=== PATIENT | female | born 1985 | race Caucasian/White ===

== ENCOUNTER → 2019-09-17 09:33 | Outpatient (BNVA) | payer MEDICAID, SELFPAY | PROVIDERS: Family Provider Family Medicine; PCP Family Medicine; Visit Provider Family Medicine | DX: R74.8 Abnormal levels of other serum enzymes (principal); J40 Bronchitis, not specified as acute or chronic | CPT/HCPCS: 80053; 85025 ==

== ENCOUNTER → 2019-11-26 16:08 | Outpatient (BNVA) | payer MEDICAID, SELFPAY | PROVIDERS: Family Provider Family Medicine; PCP Family Medicine; Visit Provider Counselor Professional | DX: F33.2 Major depressive disorder, recurrent severe without psychotic features (principal); F41.1 Generalized anxiety disorder | CPT/HCPCS: 90791 ==

== ENCOUNTER → 2019-12-17 08:30 | Outpatient (BNVA) | payer MEDICAID, SELFPAY | PROVIDERS: Family Provider Family Medicine; PCP Family Medicine; Visit Provider Psychiatry & Neurology Psychiatry | DX: F41.1 Generalized anxiety disorder (principal); F32.9 Major depressive disorder, single episode, unspecified; R53.83 Other fatigue; E63.9 Nutritional deficiency, unspecified; F09 Unspecified mental disorder due to known physiological condition; F48.9 Nonpsychotic mental disorder, unspecified; F33.1 Major depressive disorder, recurrent, moderate; F39 Unspecified mood [affective] disorder | CPT/HCPCS: 99205; G0463 ==

== ENCOUNTER → 2019-12-24 08:07 | Outpatient (BNVA) | payer MEDICAID, SELFPAY | PROVIDERS: Family Provider Family Medicine; PCP Family Medicine; Visit Provider Psychiatry & Neurology Psychiatry | DX: F33.1 Major depressive disorder, recurrent, moderate (principal) | CPT/HCPCS: 99211; G0463 ==

== ENCOUNTER → 2019-12-29 11:04 | Outpatient (BNVA) | payer MEDICAID, SELFPAY | PROVIDERS: Family Provider Family Medicine; PCP Family Medicine; Visit Provider Counselor Professional | DX: F41.1 Generalized anxiety disorder (principal); F33.2 Major depressive disorder, recurrent severe without psychotic features | CPT/HCPCS: 90832 ==

== ENCOUNTER → 2020-01-05 11:06 | Outpatient (BNVA) | payer MEDICAID, SELFPAY | PROVIDERS: Family Provider Family Medicine; PCP Family Medicine; Visit Provider Counselor Professional | DX: F41.1 Generalized anxiety disorder (principal); F33.2 Major depressive disorder, recurrent severe without psychotic features | CPT/HCPCS: 90832 ==

== ENCOUNTER → 2020-01-15 07:52 | Outpatient (BNVA) | payer MEDICAID, SELFPAY | PROVIDERS: Family Provider Family Medicine; PCP Family Medicine; Visit Provider Nurse Practitioner Psychiatric/Mental Health | DX: F33.9 Major depressive disorder, recurrent, unspecified (principal) | CPT/HCPCS: 99213 ==

== ENCOUNTER → 2020-01-19 11:16 | Outpatient (BNVA) | payer MEDICAID, SELFPAY | PROVIDERS: Family Provider Family Medicine; PCP Family Medicine; Visit Provider Counselor Professional | DX: F41.1 Generalized anxiety disorder (principal); F33.9 Major depressive disorder, recurrent, unspecified | CPT/HCPCS: 90834 ==

== ENCOUNTER → 2020-02-12 07:50 | Outpatient (BNVA) | payer MEDICAID, SELFPAY | PROVIDERS: Family Provider Family Medicine; PCP Family Medicine; Visit Provider Nurse Practitioner Psychiatric/Mental Health | DX: F33.9 Major depressive disorder, recurrent, unspecified (principal); F41.1 Generalized anxiety disorder; Z03.89 Encounter for observation for other suspected diseases and conditions ruled out | CPT/HCPCS: 99212 ==

== ENCOUNTER → 2020-02-16 11:06 | Outpatient (BNVA) | payer MEDICAID, SELFPAY | PROVIDERS: Family Provider Family Medicine; PCP Family Medicine; Visit Provider Counselor Professional | DX: F33.9 Major depressive disorder, recurrent, unspecified (principal); F41.1 Generalized anxiety disorder | CPT/HCPCS: 90834 ==

== ENCOUNTER → 2020-03-01 11:06 | Outpatient (BNVA) | payer MEDICAID, SELFPAY | PROVIDERS: Family Provider Family Medicine; PCP Family Medicine; Visit Provider Counselor Professional | DX: F41.1 Generalized anxiety disorder (principal); F33.9 Major depressive disorder, recurrent, unspecified | CPT/HCPCS: 90832 ==

== ENCOUNTER → 2020-03-15 11:05 | Outpatient (BNVA) | payer MEDICAID, SELFPAY | PROVIDERS: Family Provider Family Medicine; PCP Family Medicine; Visit Provider Counselor Professional | DX: F33.9 Major depressive disorder, recurrent, unspecified (principal); F41.1 Generalized anxiety disorder | CPT/HCPCS: 90832 ==

== ENCOUNTER → 2020-03-17 10:17 | Outpatient (BNVA) | payer MEDICAID, SELFPAY | PROVIDERS: Family Provider Family Medicine; PCP Family Medicine; Visit Provider Family Medicine | DX: N76.0 Acute vaginitis (principal); B96.89 Other specified bacterial agents as the cause of diseases classified elsewhere | CPT/HCPCS: 81000; 87491; 87591; 87661 ==

== ENCOUNTER → 2020-04-05 08:03 | Outpatient (BNVA) | payer MEDICAID, SELFPAY ==
[2020-03-18 09:18] VITALS: BP 105/69; BMI 28.3
== END ==
PROVIDERS: Family Provider Family Medicine; PCP Family Medicine; Visit Provider Nurse Practitioner Psychiatric/Mental Health
DX: F33.9 Major depressive disorder, recurrent, unspecified (principal); F41.1 Generalized anxiety disorder
CPT/HCPCS: 90832; 99212

== ENCOUNTER → 2020-04-19 10:30 | Outpatient (BNVA) | payer MEDICAID, SELFPAY ==
[2020-03-18 09:18] VITALS: BP 105/69; BMI 28.3
== END ==
PROVIDERS: Family Provider Family Medicine; PCP Family Medicine; Visit Provider Family Medicine
DX: R00.0 Tachycardia, unspecified (principal); Z13.6 Encounter for screening for cardiovascular disorders
CPT/HCPCS: 80053; 80061; 83735; 84443; 85025

== ENCOUNTER → 2020-04-22 14:07 | Outpatient (BNVA) | payer MEDICAID, SELFPAY ==
[2020-03-18 09:18] VITALS: BP 105/69; BMI 28.3
== END ==
PROVIDERS: Family Provider Family Medicine; PCP Family Medicine; Visit Provider Counselor Professional
DX: F33.9 Major depressive disorder, recurrent, unspecified (principal); F41.1 Generalized anxiety disorder
CPT/HCPCS: 90832

== ENCOUNTER → 2020-05-06 14:07 | Outpatient (BNVA) | payer MEDICAID, SELFPAY ==
[2020-03-18 09:18] VITALS: BP 105/69; BMI 28.3
== END ==
PROVIDERS: Family Provider Family Medicine; PCP Family Medicine; Visit Provider Counselor Professional
DX: F33.9 Major depressive disorder, recurrent, unspecified (principal); F41.1 Generalized anxiety disorder
CPT/HCPCS: 90832

== ENCOUNTER → 2020-05-17 07:39 | Outpatient (BNVA) | payer MEDICAID, SELFPAY ==
[2020-03-18 09:18] VITALS: BP 105/69; BMI 28.3
== END ==
PROVIDERS: Family Provider Family Medicine; PCP Family Medicine; Visit Provider Nurse Practitioner Psychiatric/Mental Health
DX: F33.9 Major depressive disorder, recurrent, unspecified (principal); F41.1 Generalized anxiety disorder
CPT/HCPCS: 99212

== ENCOUNTER → 2020-06-08 07:22 | Outpatient (BNVA) | payer MEDICAID, SELFPAY ==
[2020-03-18 09:18] VITALS: BP 105/69; BMI 28.3
== END ==
PROVIDERS: Family Provider Family Medicine; PCP Family Medicine; Visit Provider Nurse Practitioner Psychiatric/Mental Health
DX: F41.1 Generalized anxiety disorder (principal); F33.9 Major depressive disorder, recurrent, unspecified
CPT/HCPCS: 99212

== ENCOUNTER 2020-06-15 11:49 | Outpatient (CLI) | payer MEDICAID, SELFPAY ==
[2020-03-18 09:18] VITALS: BP 105/69; BMI 28.3
== END 2020-06-15 11:50 | disposition home or self-care (01) ==
LOC: LAB 03-27 13:11
PROVIDERS: PCP Family Medicine; Visit Provider Family Medicine
DX: R53.83 Other fatigue (principal); N23 Unspecified renal colic
CPT/HCPCS: 80048; 81000; 82607; 82652

== ENCOUNTER → 2020-06-17 13:10 | Outpatient (BNVA) | payer MEDICAID, SELFPAY ==
[2020-03-18 09:18] VITALS: BP 105/69; BMI 28.3
== END ==
PROVIDERS: Family Provider Family Medicine; PCP Family Medicine; Visit Provider Counselor Professional
DX: F33.9 Major depressive disorder, recurrent, unspecified (principal); F41.1 Generalized anxiety disorder
CPT/HCPCS: 90832

== ENCOUNTER → 2020-07-05 07:26 | Outpatient (BNVA) | payer MEDICAID, SELFPAY ==
[2020-03-18 09:18] VITALS: BP 105/69; BMI 28.3
== END ==
PROVIDERS: Family Provider Family Medicine; PCP Family Medicine; Visit Provider Nurse Practitioner Psychiatric/Mental Health
DX: F41.1 Generalized anxiety disorder (principal); F33.9 Major depressive disorder, recurrent, unspecified
CPT/HCPCS: 99212

== ENCOUNTER → 2020-07-22 13:08 | Outpatient (BNVA) | payer MEDICAID, SELFPAY ==
[2020-03-18 09:18] VITALS: BP 105/69; BMI 28.3
== END ==
PROVIDERS: Family Provider Family Medicine; PCP Family Medicine; Visit Provider Counselor Professional
DX: F41.1 Generalized anxiety disorder (principal); F33.1 Major depressive disorder, recurrent, moderate
CPT/HCPCS: 90834

== ENCOUNTER → 2020-08-02 08:01 | Outpatient (BNVA) | payer MEDICAID, SELFPAY ==
[2020-03-18 09:18] VITALS: BP 105/69; BMI 28.3
== END ==
PROVIDERS: Family Provider Family Medicine; PCP Family Medicine; Visit Provider Nurse Practitioner Psychiatric/Mental Health
DX: F41.1 Generalized anxiety disorder (principal); F33.9 Major depressive disorder, recurrent, unspecified
CPT/HCPCS: 81000; 99212

== ENCOUNTER → 2020-08-05 13:00 | Outpatient (BNVA) | payer MEDICAID, SELFPAY ==
[2020-03-18 09:18] VITALS: BP 105/69; BMI 28.3
== END ==
PROVIDERS: Family Provider Family Medicine; PCP Family Medicine; Visit Provider Counselor Professional
DX: F41.1 Generalized anxiety disorder (principal); F33.9 Major depressive disorder, recurrent, unspecified
CPT/HCPCS: 90832

== ENCOUNTER 2020-09-06 10:16 | Outpatient (CLI) | payer MEDICAID, SELFPAY ==
[2020-03-18 09:18] VITALS: BP 105/69; BMI 28.3
--- NOTE | 2020-09-06 11:00 | USCV_ITS ---
Madeline Ashley Age: 35 Gender: F : 1985 Exam Date: 09/06/2020 10:48 Ordering Phys: Dominga Cannon MD ([email or web address]) Technologist: Marilyn Fernandez Exam Location: [facility] [place] Indication: TACHY BP: 111 / 76 HR: 71 Rhythm: Sinus Technical Quality: Adequate MEASUREMENTS (Male / Female) Normal Values 2D ECHO LV Diastolic Diameter PLAX 3.3 cm 4.2 - 5.9 / 3.9 - 5.3 cm LV Systolic Diameter PLAX 2.1 cm LV Chamber Size 3.9 cm IVS Diastolic Thickness 0.9 cm 0.6 - 1.0 / 0.6 - 0.9 cm IVS Systolic Thickness 1.1 cm LVPW Diastolic Thickness 1.3 cm 0.6 - 1.0 / 0.6 - 0.9 cm LVPW Systolic Thickness 1.4 cm RV Chamber Size 2.5 cm LVOT Diameter 2.0 cm LV Ejection Fraction 2D Teich 65.4 % LV Ejection Fraction MOD 2C 71.0 % LV Ejection Fraction 2C AL 70.5 % LA Diameter 2.5 cm LA Width 2.4 cm LA Height 3.9 cm RA Width 2.2 cm RA Height 3.0 cm Aorta at Sinotubular Diameter 2.7 cm M-MODE LV Diastolic Diameter MM 3.6 cm 4.2 - 5.9 / 3.9 - 5.3 cm LV Systolic Diameter MM 2.2 cm LV Ejection Fraction MM Teich 72.2 % IVS Diastolic Thickness MM 0.8 cm 0.6 - 1.0 / 0.6 - 0.9 cm IVS Systolic Thickness MM 1.1 cm LVPW Diastolic Thickness MM 0.7 cm 0.6 - 1.0 / 0.6 - 0.9 cm LVPW Systolic Thickness MM 1.6 cm RV Diastolic Diameter MM 1.6 cm Aortic Annulus Diameter 3.1 cm LA Ao Ratio MM 0.8 MV E Point Septal Separation 0.5 cm DOPPLER AV Peak Velocity 124.0 cm/s LVOT Peak Velocity 123.0 cm/s AV Area Cont Eq vti 2.8 cm squared AV Area Cont Eq pk 3.1 cm squared MV Area PHT 3.0 cm squared Mitral E to A Ratio 1.4 MV E' Velocity 59.5 cm/s Mitral E to MV E' Ratio 9.6 Mitral E to LV E' Lateral Ratio 10.2 Mitral E to LV E' Septal Ratio 9.1 TR Peak Velocity 84.0 cm/s TR Peak Gradient 2.8 mmHg TR Mean Velocity 93.2 cm/s TR Mean Gradient 3.7 mmHg TR Velocity Time Integral 28.3 cm PV Peak Velocity 76.3 cm/s RV Acceleration Time 0.2 s RV Ejection Time 0.4 s RV AcT/ET 0.5 FINDINGS Left Ventricle Normal left ventricular size and systolic function with no regional wall motion abnormalities. Left ventricular ejection fraction is estimated at 60 %. Normal diastolic function. Right Ventricle Normal right ventricular size and systolic function. Right Atrium Normal right atrial size. Left Atrium Normal left atrial size. Mitral Valve Mildly thickened mitral valve. No mitral valve stenosis. Trace mitral valve regurgitation. Aortic Valve Probably trileaflet aortic valve. No aortic valve stenosis. No aortic valve regurgitation. No aortic valve regurgitation. Tricuspid Valve Structurally normal tricuspid valve. Trace to mild tricuspid valve regurgitation. Pulmonic Valve Structurally normal pulmonic valve. Trace pulmonary valve regurgitation. Pericardium No pericardial effusion. Aorta Normal size aortic root and proximal ascending aorta. CONCLUSIONS 1. Normal left ventricular size and systolic function with no regional wall motion abnormalities. Left ventricular ejection fraction is estimated at 60 %. Normal diastolic function. 2. Normal right ventricular size and systolic function. 3. No significant valvular abnormalities. 4. No prior similar studies to compare. Dominga Cannon MD (Electronically Signed) Final Date: 07 September 2020 21:40 S
== END 2020-09-06 10:17 | disposition home or self-care (01) ==
LOC: US 10:16
PROVIDERS: PCP Family Medicine; Visit Provider Internal Medicine Cardiovascular Disease
DX: R00.0 Tachycardia, unspecified (principal)
CPT/HCPCS: 93306

== ENCOUNTER → 2020-10-25 07:43 | Outpatient (BNVA) | payer MEDICAID, SELFPAY ==
[2020-03-18 09:18] VITALS: BP 105/69; BMI 28.3
== END ==
PROVIDERS: PCP Family Medicine; Visit Provider Nurse Practitioner Psychiatric/Mental Health
DX: F41.1 Generalized anxiety disorder (principal); F33.1 Major depressive disorder, recurrent, moderate
CPT/HCPCS: 99213

== ENCOUNTER → 2020-10-27 15:27 | Outpatient (BNVA) | payer MEDICAID, SELFPAY ==
[2020-03-18 09:18] VITALS: BP 105/69; BMI 28.3
== END ==
PROVIDERS: PCP Family Medicine; Visit Provider Otolaryngology
DX: Z20.822 Contact with and (suspected) exposure to COVID-19 (principal); J38.2 Nodules of vocal cords
CPT/HCPCS: 87635

== ENCOUNTER → 2020-11-18 14:24 | Outpatient (BNVA) | payer MEDICAID, SELFPAY ==
[2020-03-18 09:18] VITALS: BP 105/69; BMI 28.3
== END ==
PROVIDERS: PCP Family Medicine; Referring Provider Otolaryngology; Visit Provider Otolaryngology
DX: Z20.822 Contact with and (suspected) exposure to COVID-19 (principal); J38.2 Nodules of vocal cords
CPT/HCPCS: 87635

== ENCOUNTER 2020-11-24 07:58 | Day surgery (SDC) | payer MEDICAID, SELFPAY ==
[2020-03-18 09:18] VITALS: BP 105/69; BMI 28.3
[2020-11-23 13:21] VITALS: BMI 30.1
[2020-11-24 08:24] VITALS: BP 109/78; PULSE 83; RESP 18; TEMP 36.6; O2SAT 98
--- NOTE | 2020-11-24 08:34 | W.PM.OPSUD ---
Surgery/Procedure H&P Update DATE OF PROCEDURE: November 24, 2020 DATE H&P PERFORMED: 10/27/20 H&P UPDATE INFORMATION: I have reviewed H&P completed within last 30 days, I have examined patient prior to procedure and No changes to prior documentation PREOP DIAGNOSIS: Hoarseness with right vocal cord nodule PLANNED PROCEDURE: Operation Date: 11/24/20 09:40 Proposed Procedures p Direct Laryngoscopy w/ biopsy 66871 J38.2(Not Applicable) - Isiah Ovalle MD
[2020-11-24 08:54] LABS: OR HCG Qualitative Urine Negative (Negative)
[2020-11-24] MEDS: sodium chloride 0.9% 1,000 ML 30 ML IV (09:01)
--- NOTE | 2020-11-24 09:08 | ANES.PREANE2 ---
Pre-Anesthetic Assessment Pre-Anesthetic Assessment: Height/Weight: Height 1.6 m Weight 77.111 kg Temp Pulse Resp BP Pulse Ox 97.9 F 83 18 109/78 98 11/24/20 08:24 11/24/20 08:24 11/24/20 08:24 11/24/20 08:24 11/24/20 08:24 Preop Diagnosis: Hoarseness with right vocal cord nodule Proposed Procedure: Operation Date: 11/24/20 09:40 Proposed Procedures p Direct Laryngoscopy w/ biopsy [id number] J38.2(Not Applicable) - Isiah Ovalle MD Familial anesthetic complications: None Was Beta Crow taken within 24 hours: N/A Was Clonidine taken within 24 hours: N/A Last intake: Intake Last Liquid Date 11/23/20 Last Liquid Time 21:00 Last Solid Date 11/23/20 Last Solid Time 21:00 Social: Social History: Tobacco and No alcohol Airway: Cervical ROM: WNL MP: 2 Dentition: False Pulmonary: Pulmonary: Asthma CV/HEM: CV/HEM: Arrythmia Anesthetic Plan: ASA status: 3 Anesthesia: General Risk of > 500 ml blood loss (7ml/kg in children): No Meds/Allergies Current Medications: Current Medications Generic Name Dose Route Start Last Admin Trade Name Freq PRN Reason Stop Dose Admin Sodium Chloride 1,000 mls @ 30 ml s/hr 11/24/20 08:15 11/24/20 09:01 Sodium Chloride 0.9% IV 11/25/20 08:14 30 mls/hr .Q24H JOSÉ ANTONIO Administration PFSH Anesthesia PFSH: Medical History Asthma, persistent controlled Elevated liver enzymes HEP A, B and C testing was neg on records from [facility] in 2019. DANNY (generalized anxiety disorder) Hx of Clostridium difficile infection Irritable bowel syndrome with both constipation and diarrhea Major depression Major depressive disorder, recurrent RUQ abdominal pain Seasonal allergies Surgical History H/O foot surgery History of nasal surgery S/P cholecystectomy Family History Grandmother Cancer Grandfather Cancer Hypertension Social History (Reviewed 11/02/20 @ 16:15 by Monae Bhakta Smoking and tobacco status: former smoker Quit status (tobacco): has quit using tobacco Year quit tobacco: 2019 - 2PPD x 17 Years Second hand smoke exposure: Yes Smoking risk assessment/counseling performed?: No Alcohol intake: never Desire information about alcohol rehabilitation?: No Counseling given: No Desire information about substance/drug rehabilitation?: No Counseling given: No Lives independently: Yes Household members: spouse Marital status: Current occupational status: disabled History of recent travel: No Current gender identity: Female Special amairani needs: No Female Reproductive History: Date of last menstrual period: 12/09/19 Spontaneous abortions: No Data Anesthesia Other Labs: Laboratory Results - last 48 hr 11/24/20 08:40 Urine HCG, Qual Negative Cardiac Studies: Holter Monitor 07/06/20
[2020-11-24] MEDS: EPINEPHrine 1 mg/mL INJ XX (09:49)
--- NOTE | 2020-11-24 09:58 | PM.OP ---
Operative Report Date of procedure: November 24, 2020 Pre-op Diagnosis: Hoarseness with right vocal cord nodule Post-op diagnosis: same Post-op Findings: Large right mid vocal cord cyst and nodule Procedure Done: Direct suspension microscopic laryngoscopy with removal of right vocal cord cyst/nodule Specimens removed/disposition: Biopsy of right true vocal cord Surgeon: Isiah Ovalle Anesthesia: General Estimated blood loss (mL): 5 Complications: No complications Findings: Findings in the larynx was a right mid vocal cord mounded mass mucosal covered and cystic in nature. The left side had a callus which was minimal in size adjacent to this. It was not an actual nodule. Condition: stable Disposition: PACU Brief History: 35-year-old female patient has been hoarse for an extended period of time. On exam she was noted to have a right vocal cord nodule or mass. There was no corresponding nodule on the opposite side. The patient is being brought to the operating room at this time to undergo direct suspension microscopic laryngoscopy with removal of this nodule/mass from the right vocal cord. The procedure its risks and complications were explained in the office setting. These risks included bleeding infection scarring hoarseness/voice change need for additional treatment recurrence and more serious risk such as heart attack or stroke or not surviving the surgery. With these things understood informed consent was granted. Procedure: Description of procedure the patient was placed on the operating table in the supine position. Adequate general endotracheal tube anesthesia was obtained. The table was rotated 90 degrees. The head was dropped 15 degrees to the horizontal. The eyes were taped shut and head drape was applied in usual fashion. A timeout was accomplished identifying the patient date of plan procedure allergies fire risk and medications given. With all in agreement the procedure continued. A tooth guard was placed over the upper gingiva. K-Y jelly was applied on the lips and the mouthguard. An anterior commissure operating laryngoscope was then placed and suspended from a Monk stand. A microscope with a 400 lens was brought in for better visualization. The lesion on the vocal cord appeared to be mucosal covered and likely to be a cyst. The corresponding left vocal cord had a small callus present but was not actually a nodule or cyst. Nothing was done with the left side. The right side mucosa was incised exposing the cyst which was removed with cup forceps and the flap was placed back in the position. Epinephrine 1-1000 was applied with a cottonoid. After couple of minutes and LTA was dispensed to cut down on coughing postoperatively. The excess was suctioned. Then the scope was taken down and removed. Drapes were removed. Patient was then returned to the anesthesiologist for wake-up and extubation. She tolerated the procedure well had an estimated blood loss of 5 mL or less and arrived in recovery in stable condition.
[2020-11-24 10:05] VITALS: BP 110/84; PULSE 79; RESP 18; TEMP 36.6; O2SAT 98
[2020-11-24 10:10] VITALS: BP 108/75; PULSE 78; RESP 15; O2SAT 100
--- NOTE | 2020-11-24 10:13 | SUR.PHASEI ---
1013- ORAL AIRWAY OUT, SIMPLE MASK AT 6LPM SAT 100%
[2020-11-24 10:15] VITALS: BP 120/87; PULSE 80; RESP 20; TEMP 36.6; O2SAT 100
[2020-11-24 10:22] VITALS: BP 117/94; RESP 18; TEMP 36.6; O2SAT 95
[2020-11-24 10:35] VITALS: BP 113/92; PULSE 83; RESP 18; O2SAT 95
--- NOTE | 2020-11-24 14:25 | ANE.PACU2 ---
Inpatient post-anesthesia follow up: Airway intact: Yes Vital signs: Temperature 97.9 F Pulse Rate 83 Respiratory Rate 18 Blood Pressure 113/92 Pulse Oximetry 95 Oxygen Delivery Me thod Room Air Oxygen Flow Rate 6 Fraction of Inspir ed Oxygen Hydration adequate: Yes Nausea and vomiting: No Pain level: 1 Mental status: Baseline
== END 2020-11-24 11:06 | disposition home or self-care (01) ==
PROVIDERS: PCP Family Medicine; Visit Provider Otolaryngology
PROC: 0CJS8ZZ Inspection of Larynx, Via Natural or Artificial Opening Endoscopic (ICD-10-PCS; CPT 31541; principal; 2020-11-24 09:30)
DX: J38.2 Nodules of vocal cords (principal); R49.0 Dysphonia; J45.909 Unspecified asthma, uncomplicated; Z87.891 Personal history of nicotine dependence
CPT/HCPCS: 31541; 81025; 84703; 88305; J0171; J1100; J2250; J2405; J2704; J3010; J3490; J7030

== ENCOUNTER → 2020-12-14 15:44 | Outpatient (BNVA) | payer MEDICAID, SELFPAY ==
[2020-03-18 09:18] VITALS: BP 105/69; BMI 28.3
== END ==
PROVIDERS: PCP Family Medicine; Visit Provider Family Medicine
DX: R30.0 Dysuria (principal); Z20.2 Contact with and (suspected) exposure to infections with a predominantly sexual mode of transmission
CPT/HCPCS: 81000; 87086; 87491; 87591; 87661

== ENCOUNTER → 2021-10-26 13:21 | Outpatient (BNVA) | payer MEDICAID, SELFPAY ==
[2021-05-26 14:13] VITALS: BP 116/73; BMI 31.4
== END ==
PROVIDERS: PCP Family Medicine; Visit Provider Family Medicine
DX: R33.9 Retention of urine, unspecified (principal); N92.6 Irregular menstruation, unspecified; J45.50 Severe persistent asthma, uncomplicated; F41.1 Generalized anxiety disorder; F33.1 Major depressive disorder, recurrent, moderate; K29.30 Chronic superficial gastritis without bleeding; I10 Essential (primary) hypertension; J30.2 Other seasonal allergic rhinitis; N39.0 Urinary tract infection, site not specified; Z20.2 Contact with and (suspected) exposure to infections with a predominantly sexual mode of transmission
CPT/HCPCS: 81000; 81025; 87491; 87591; 87661

== ENCOUNTER → 2021-11-23 11:20 | Outpatient (BNVA) | payer MEDICAID, SELFPAY ==
[2021-05-26 14:13] VITALS: BP 116/73; BMI 31.4
== END ==
PROVIDERS: PCP Family Medicine; Visit Provider Family Medicine
DX: R33.9 Retention of urine, unspecified (principal); I10 Essential (primary) hypertension; R39.11 Hesitancy of micturition; M25.561 Pain in right knee
CPT/HCPCS: 73562; 81000; 87086

== ENCOUNTER → 2022-01-26 13:13 | Outpatient (BNVA) | payer MEDICAID, SELFPAY ==
[2021-05-26 14:13] VITALS: BP 116/73; BMI 31.4
== END ==
PROVIDERS: PCP Family Medicine; Referring Provider Family Medicine; Visit Provider Specialist
DX: G89.29 Other chronic pain (principal); M25.561 Pain in right knee
CPT/HCPCS: 73560; 73565; 99204

== ENCOUNTER → 2022-05-03 14:41 | Outpatient (BNVA) | payer MEDICAID, SELFPAY ==
[2021-05-26 14:13] VITALS: BP 116/73; BMI 31.4
== END ==
PROVIDERS: PCP Family Medicine; Visit Provider Family Medicine
DX: R30.0 Dysuria (principal); F33.1 Major depressive disorder, recurrent, moderate; F41.1 Generalized anxiety disorder; J30.2 Other seasonal allergic rhinitis; J45.50 Severe persistent asthma, uncomplicated; K29.30 Chronic superficial gastritis without bleeding; I10 Essential (primary) hypertension; R00.0 Tachycardia, unspecified; Z13.220 Encounter for screening for lipoid disorders; Z13.6 Encounter for screening for cardiovascular disorders; N30.00 Acute cystitis without hematuria
CPT/HCPCS: 80053; 80061; 81000; 83721; 83735; 84443; 85025; 87086

== ENCOUNTER → 2022-05-23 09:51 | Outpatient (BNVA) | payer MEDICAID, SELFPAY ==
[2021-05-26 14:13] VITALS: BP 116/73; BMI 31.4
== END ==
PROVIDERS: PCP Family Medicine; Visit Provider Internal Medicine Cardiovascular Disease
DX: R00.0 Tachycardia, unspecified (principal); F33.1 Major depressive disorder, recurrent, moderate; R42 Dizziness and giddiness; F41.1 Generalized anxiety disorder; J45.998 Other asthma; Z87.891 Personal history of nicotine dependence
CPT/HCPCS: 99213; 99214

== ENCOUNTER 2022-08-28 11:51 | Emergency (ER) | payer MEDICAID, SELFPAY ==
[2021-05-26 14:13] VITALS: BP 116/73; BMI 31.4
[2022-08-28 12:04] VITALS: BP 119/85; PULSE 113; RESP 18; TEMP 36.9; O2SAT 98
--- NOTE | 2022-08-28 12:58 | ECG_ITS ---
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 Measurements Intervals [place] Rate: 108 P: 52 W[place]: 116 QRS: -38 QRSD: 100 T: 21 QT: 328 QTc: 441 Interpretive Statements SINUS TACHYCARDIA WITH SHORT [place]Y INTERVAL LEFT AXIS DEVIATION [QRS AXIS < -30] LOW QRS VOLTAGE IN PRECORDIAL LEADS [QRS DEFLECTION < 1.0 mV IN CHEST LEADS] S1-S2-S3 PATTERN, CONSISTENT WITH PULMONARY DISEASE, RVH, OR NORMAL VARIANT PATTERN CONSISTENT WITH PULMONARY DISEASE INCOMPLETE RIGHT BUNDLE BRANCH BLOCK [90+ ms QRS DURATION, TERMINAL R IN V1/V2, 40+ ms S IN I/aVL/V4/V5/V6] INTERPRETATION BASED ON A DEFAULT AGE OF 40 YEARS No previous ECG available for comparison Electronically Signed On 08-28-2022 14:38:37 TELEPHONE DIRECTORY DISTRIBUTOR DRIVER by Raghav Perez M.D. [id number]
--- NOTE | 2022-08-28 12:59 | XRR_ITS ---
PROCEDURE INFORMATION: Exam: XR Chest Exam date and time: 08/28/2022 1:05 PM Age: 37 years old Clinical indication: Other: Right chest pain with inspiration TECHNIQUE: Imaging protocol: Radiologic exam of the chest. Views: 1 view. COMPARISON: No relevant prior studies available. FINDINGS: Lungs: Unremarkable. No consolidation. Pleural spaces: Unremarkable. No pleural effusion. No pneumothorax. Heart/Mediastinum: Unremarkable. No cardiomegaly. Bones/joints: Unremarkable. XR/XR chest 1V portable [id number] IMPRESSION: No acute findings.
--- NOTE | 2022-08-28 13:16 | ED_ITS ---
HPI - Chest Pain General: Chief Complaint: Chest Pain Stated Complaint: Low blood pressure Time Seen by Provider: 08/28/22 12:17 Source: patient Mode of arrival: ambulatory Limitations: no limitations History of Present Illness: See nursing assessment. Patient with complaints of hypotension, dizziness, near syncope, shocklike chest pain on the right, and mild right upper quad abdominal pain. She has had occasional nausea but no vomiting. She has chronic diarrhea. Denies any fever. She states symptoms been ongoing for approximately 2 weeks. There was report that she was suicidal. However, patient states she is chronically suicidal due to her depression. She states she has no increase in her depression today and does not feel suicidal now. Past surgical history includes cholecystectomy, left fallopian tube removal. Denies tobacco or alcohol use. She appears in no distress. Associated symptoms: Reports abdominal pain and nausea; Deny dyspnea, fever(s), palpitations or vomiting Review of Systems Const: Denies: fever(s) or chills Eyes: Denies: change in vision ENMT: Denies: throat pain Card: Reports: chest pain; Denies: palpitations or edema Resp: Reports: pain on inspiration; Denies: dyspnea, productive cough, non-productive cough or wheezing GI: Reports: abdominal pain, nausea and diarrhea; Denies: vomiting, constipation or hematochezia : Denies: flank pain Musc: Denies: neck pain or back pain Skin/Breast: Denies: rash or pruritus Neuro: Denies: headache(s) or numbness in extremities Psych: Reports: depression; Denies: anxiety, auditory hallucinations, suicidal ideation or homicidal ideation Charles/Lymph: Denies: enlarged lymph nodes PFSH ED PFSH: Medical History Asthma, persistent controlled Elevated liver enzymes HEP A, B and C testing was neg on records from [facility] in 2019. DANNY (generalized anxiety disorder) Hx of Clostridium difficile infection Irritable bowel syndrome with both constipation and diarrhea Major depression Major depressive disorder, recurrent RUQ abdominal pain Seasonal allergies Surgical History H/O foot surgery History of nasal surgery S/P cholecystectomy Family History Grandmother Cancer Grandfather Cancer Hypertension Social History Smoking and tobacco status: former smoker Quit status (tobacco): has quit using tobacco Year quit tobacco: 2019 - 2PPD x 17 Years Second hand smoke exposure: Yes Smoking risk assessment/counseling performed?: No Alcohol intake: never Desire information about alcohol rehabilitation?: No Counseling given: No Desire information about substance/drug rehabilitation?: No Counseling given: No Adopted: No Caregiver/support person: No Lives independently: Yes Household members: family Housing: Manufactured/Mobile home Marital status: Legally Marital status details: 2 years Number of children: 0 Number of grandchildren: 0 Highest education level completed: 12th Grade, No Diploma Education level details: Does not read or write very well service: No Current occupational status: disabled Current occupational exposures/hazards: No Pets and animals: Yes (service dog) Pets & animals: cat(s) and dog(s) History of recent travel: No Leisure activites: other Leisure activities details: watch [employer] Sexually active: No Current gender identity: Female Lois/Christianity: Confucianism Special lois needs: No Agree to transfusion: Yes Financial difficulty paying for basics: Somewhat Hard Female Reproductive History: Date of last menstrual period: 12/01/20 Para: 0 Spontaneous abortions: No Physical Exam Const: COMMON NORMALS: no acute distress, patient oriented x3, no limitations and well nourished EXAM LIMITATIONS: altered mental status GENERAL APPEARANCE: cooperative HENMT: COMMON NORMALS: normocephalic and atraumatic HEAD & SCALP: normocephalic and atraumatic FACE & SINUS: normal facial exam Eye: COMMON NORMALS: EOMs intact bilaterally Neck/C-Spine: COMMON NORMALS: full ROM, no lymphadenopathy, supple and no meningeal signs GENERAL: Yes normal visual inspection Lymph: LYMPHATIC: no lymphadenopathy noted Chest: COMMONS NORMALS: normal inspection of the chest CHEST: No Ecchymosis present and No rash OTHER: Mild reproducible pain to right chest wall and sternum with palpation. No crepitus. No rash. Resp: COMMON NORMALS: normal respiratory effort, No retractions and clear to auscultation bilaterally EFFORT & INSPECTION: No respiratory distress AUSCULTATION: clear to auscultation bilaterally Cardio: COMMON NORMALS: regular rhythm and Peripheral pulses 2+ throughout JUGULAR VENOUS DISTENTION: no JVD RATE: tachycardic RHYTHM: regular rhythm PERIPHERAL PULSES: Peripheral pulses 2+ throughout OTHER: Mild tachycardia. Peripheral pulses normal. GI: COMMON NORMALS: Normal to inspection, nondistended, normoactive bowel sounds present, Soft to palpation, No hepatosplenomegaly present and no masses PALPATION: Yes Soft to palpation and Yes No hepatosplenomegaly present OTHER: Mild right upper quadrant Chao pain. : COMMON NORMALS: Yes no CVA tenderness BLADDER/KIDNEY EXAM: Yes no CVA tenderness Back/Pelvis: COMMON NORMALS: no CVA tenderness Extremity: COMMON NORMALS: normal to inspection, full ROM and capillary refill normal Neuro: COMMON NORMALS: patient oriented x3, CN's II-XII intact bilaterally, no focal motor deficits and no sensory deficits noted MENINGEAL SIGNS: Yes no meningeal signs Psych: COMMON NORMALS: mental status grossly normal and Normal thought process present THOUGHT PROCESS: Normal thought process present OTHER: Patient states she is not presently suicidal. She states she has chronic dep ression and occasional suicidal ideations but is not currently suicidal now. Patient is happy and alert. She is very talkative. She appears in no distress. Skin: COMMON NORMALS: no rashes or lesions noted and no wounds GENERAL SKIN EXAM: no rashes or lesions noted Course Vital Signs: Vital signs: Vital Signs Temperature 98.5 F 08/28/22 12:04 Pulse Rate 100 08/28/22 14:37 Respiratory Rate 18 08/28/22 12:04 Blood Pressure 113/69 08/28/22 14:37 Pulse Oximetry 99 08/28/22 14:37 Oxygen Delivery Me thod 08/28/22 14:37 MDM - Chest Pain Medical Decision Making Pleuritic chest pain history. Right upper quadrant abdominal pain. Dizziness Patient is not suicidal. Lab test showed nothing emergent. Patient may have gastritis. We will have her continue Pepcid. We will add Carafate. Encourage patient to take Tylenol for any pain. Lab Data 08/28/22 13:41 08/28/22 13:41 Radiology Impressions Chest X-Ray 08/28/22 12:59 IMPRESSION: No acute findings. Laboratory Results WBC 5.8 10^3/uL (4.0-10.0) 08/28/22 13:41 RBC 4.53 10^6/uL (4.1-5.3) 08/28/22 13: Hgb 11.1 g/dL (11.5-15.3) L 08/28/22 13: Hct 36.5 % (37.0-47.0) L 08/28/22 13: MCV 80.6 fl (81-99) L 08/28/22 13: MCH 24.5 pg (28.0-34.0) L 08/28/22 13: MCHC 30.4 g/dL (30.0-36.0) 08/28/22 13: RDW 15.1 % (12.1-15.1) 08/28/22 13: Plt Count 184 10^3/cmm (130-400) 08/28/22 13: MPV 9.9 fL (7.4-10.4) 08/28/22 13: Neut % (Auto) 57.2 % 08/28/22 13: Lymph % (Auto) 32.0 % 08/28/22 13:41 [place] % (Auto) 8.7 % 08/28/22 13: Eos % (Auto) 0.7 % 08/28/22 13: Baso % (Auto) 0.5 % 08/28/22 13: Neut # (Auto) 3.34 10^3/uL (1.8-7.7) 08/28/22 13: Lymph # (Auto) 1.9 10^3/uL (0.8-4.8) 08/28/22 13: [place] # (Auto) 0.5 10^3/uL (0.2-0.9) 08/28/22 13: Eos # (Auto) 0.0 10^3/uL (0.0-0.8) 08/28/22 13: Baso # (Auto) 0.0 10^3/uL (0.0-0.1) 08/28/22 13: Nucleated RBC % (auto) 0 % 08/28/22 13: Nucleated RBCs # 0.0 /100WBC 08/28/22 13: Sodium 134 mmol/L (136-145) L 08/28/22 13:41 Potassium 4.0 mmol/L (3.5-5.1) 08/28/22 13:41 Chloride 100 mmol/L (98-107) 08/28/22 13:41 Carbon Dioxide 22 mmol/L (22-29) 08/28/22 13:41 Anion Gap 16.0 (5-19) 08/28/22 13:41 BUN 6 mg/dL (6-20) 08/28/22 13:41 Creatinine 0.8 mg/dL (0.5-0.9) 08/28/22 13:41 GFR Calculation 81.2 mL/min (90-130) L 08/28/22 13:41 Glucose 97 mg/dL (65-115) 08/28/22 13:41 Calculated Osmolality 276 mOsm/kg (285-295) L 08/28/22 13:41 Calcium 8.4 mg/dL (8.5-10.5) L 08/28/22 13:41 Total Bilirubin 0.2 mg/dL (0.15-1.2) 08/28/22 13:41 AST 29 U/L (0-32) 08/28/22 13:41 ALT 30 U/L (0-33) 08/28/22 13:41 Alkaline Phosphatase 178 U/L (35-105) H 08/28/22 13:41 Troponin T Baseline 6 ng/L (0-10) 08/28/22 13:41 Total Protein 7.0 g/dL (6.6-8.7) 08/28/22 13:41 Albumin 3.6 g/dL (3.5-5.2) 08/28/22 13:41 Globulin 3.4 g/dL (1.3-4.6) 08/28/22 13:41 Lipase 37 U/L (13-60) 08/28/22 13:41 Urine Color Yellow (Yellow) 08/28/22 13:11 Urine Appearance Clear (CLEAR) 08/28/22 13:11 Urine pH 6 (5-7) 08/28/22 13:11 Ur Specific [place] 1.015 (1.005-1.030) 08/28/22 13:11 Urine Protein Neg (Negative) 08/28/22 13:11 Urine Glucose (UA) Norm (Normal) 08/28/22 13:11 Urine Ketones Negative (Negative) 08/28/22 13:11 Urine Blood 2+ (Negative) H 08/28/22 13:11 Urine Nitrate Negative (Negative) 08/28/22 13:11 Urine Bilirubin Neg (Negative) 08/28/22 13:11 Urine Urobilinogen Neg mg/dL (Negative) 08/28/22 13:11 Ur Leukocyte Esterase Negative (Negative) 08/28/22 13:11 Urine RBC Rare /hpf (0-2) 08/28/22 13:11 Urine WBC None /hpf (0-5) 08/28/22 13:11 Ur Squamous Epith Cells 0-4 /hpf (0-5) H 08/28/22 13:11 Amorphous Sediment Not Reportable 08/28/22 13:11 Urine Bacteria None /hpf (NONE) 08/28/22 13:11 Urine HCG, Qual Negative (Negative) 08/28/22 13:11 Imaging Data CXR: I personally reviewed and interpreted this imaging study as follows: My impression: Nothing acute. No pneumothorax. No infiltrates, no effusions. No free air under the diaphragm. Radiologist's impression: PROCEDURE INFORMATION: Exam: XR Chest Exam date and time: 08/28/2022 1:05 PM Age: 37 years old Clinical indication: Other: Right chest pain with inspiration TECHNIQUE: Imaging protocol: Radiologic exam of the chest. Views: 1 view. COMPARISON: No relevant prior studies available. FINDINGS: Lungs: Unremarkable. No consolidation. Pleural spaces: Unremarkable. No pleural effusion. No pneumothorax. Heart/Mediastinum: Unremarkable. No cardiomegaly. Bones/joints: Unremarkable. XR/XR chest 1V portable [id number] IMPRESSION: No acute findings. ? Dictated By: Ranjit Guzman Signed By: Ranjit Guzman Signed Date/Time: 08/28/22 1326 EKG Data EKG 1: I personally reviewed and interpreted this EKG as follows: EKG interpretation date: 08/28/22 EKG interpretation time: 12:05 Interpretation: Impression sinus tachycardia. Heart rate 108. Normal [place] interval, normal QT interval, normal P waves, normal T waves. Normal QRS. Mild left axis. Normal ST segments. Discharge Plan Discharge Patient Disposition: Home Clinical Impression: RUQ abdominal pain, Acute chest wall pain Gastritis Qualifiers: Gastritis type: superficial Chronicity: acute Gastritis bleeding: without bleeding Qualified Code(s): K29.00 - Acute gastritis without bleeding Condition: Stable Prescriptions: New Carafate 1 gram tablet 1 g PO Q6H Qty: 28 2RF Rx Instructions: for stomach No Action fluticasone propion-salmeterol [Advair Diskus] 250-50 mcg/dose blister with device 1 inh inhalation BID Qty: 60 5RF buspirone 10 mg tablet 10 mg PO BID Qty: 60 0RF pantoprazole 40 mg tablet,delayed release (DR/EC) 40 mg PO BID metoprolol succinate 25 mg tablet extended release 24 hr 25 mg PO QAM Ventolin HFA 90 mcg/actuation HFA aerosol inhaler 1 puff inhalation Q4H PRN (Reason: Shortness Of Breath) loratadine 10 mg tablet 10 mg PO QAM Atrovent HFA 17 mcg/actuation HFA aerosol inhaler 2 puff inhalation TID Discharge Orders: Discharge ED (Routine); Ordered 08/28/22 Ordered By: Nicholas Jeong Referrals: Ngozi Duenas MD [Primary Care Provider] - 1-3 days (As needed.) Discharge Diet: Advance as tolerated Discharge Activity: Increase activity as tolerated Patient Instructions: Gastritis (ED), Abdominal Pain (ED), Chest Wall Pain (ED) Activity Restrictions/Additional Instructions: May take Tylenol every 4-6 hours as needed for pain. May take your antiacid medication twice a day for the next 3 or 4 days and then go back to once a day. Add Carafate to your medications. Follow-up with your family doctor later this week for recheck. Coding Level of Care Code ED Residential Mental Health Worker for Stevie Decker
--- NOTE | 2022-08-28 13:17 | PC.PHAR ---
pt states she takes care of her own medications-pt states she never got corlanor 5mg bid written 05/23/22 pt states she hasnt taken lexapro 20mg qam in around 3 months rx written 05/23/22 [facility] states last filled apr 2022 30d/s-pt states she uses the atrovent inhaler-ventolin inhaler and advair diskus dent states they havent filled the inhalers recently for the pt-
[2022-08-28 13:41] LABS: Urine Appearance Clear (CLEAR); Urine Color Yellow (Yellow)
[2022-08-28 13:42] LABS: Add Urine Culture? No; Bilirubin Urine Neg (Negative); Blood Urine 2+ (Negative); Glucose Urine UA Norm (Normal); Ketones Urine Negative (Negative); Leukocyte Esterase Urine Negative (Negative); Nitrate Urine Negative (Negative); Protein Urine Neg (Negative); RBC Urine RARE /hpf (0-2); Specific Gravity, Urine 1.015 (1.005-1.030); Squamous Epithelial Cell Urine 0-4 /hpf (0-5); Urobilinogen Urine Neg (Negative); pH Urine 6 (5-7)
[2022-08-28 13:52] LABS: Basophils % 0.5 %; Eosinophils % 0.7 %; Hematocrit 36.5 % (37.0-47.0); Hemoglobin 11.1 g/dL (11.5-15.3); Lymphocytes # 1.9 10^3/uL (0.8-4.8); Mean Corpuscular HGB Conc 30.4 g/dL (30.0-36.0); Mean Corpuscular Hemoglobin 24.5 pg (28.0-34.0); Mean Corpuscular Volume 80.6 fl (81-99); Mean Platelet Volume 9.9 fL (7.4-10.4); Monocytes # 0.5 10^3/uL (0.2-0.9); Monocytes % 8.7 %; Neutrophils # 3.34 10^3/uL (1.8-7.7); Neutrophils % 57.2 %; Nucleated Red Blood Cells % 0 %; Platelet Count 184 10^3/cmm (130-400); Red Blood Count 4.53 10^6/uL (4.1-5.3); Red Cell Distribution Width 15.1 % (12.1-15.1); White Blood Count 5.8 10^3/uL (4.0-10.0)
[2022-08-28 14:10] LABS: Alanine Aminotransferase 30 U/L (0-33); Albumin Level 3.6 g/dL (3.5-5.2); Alkaline Phosphatase 178 U/L (35-105); Aspartate Amino Transferase 29 U/L (0-32); Blood Urea Nitrogen 6 mg/dL (6-20); Calcium 8.4 mg/dL (8.5-10.5); Carbon Dioxide 22 mmol/L (22-29); Chloride 100 mmol/L (98-107); Globulin 3.4 g/dL (1.3-4.6); Glomerular Filtration Rate 81.2 mL/min (90-130); Glucose 97 mg/dL (65-115); Lipase 37 U/L (13-60); Osmolality Calculated 276 mOsm/kg (285-295); Sodium 134 mmol/L (136-145); Total Bilirubin 0.2 mg/dL (0.15-1.2)
[2022-08-28 14:11] LABS: Troponin(5th) Baseline 6 ng/L (0-10)
[2022-08-28] MEDS: sodium chloride 0.9% 1,000 ML 999 ML IV (14:15)
[2022-08-28 14:37] VITALS: BP 113/69; PULSE 100; O2SAT 99
[2022-08-28 15:30] VITALS: BP 103/61; PULSE 95; O2SAT 100
[2022-08-28 15:33] VITALS: BP 103/61; PULSE 95; O2SAT 100
== END 2022-08-28 15:34 | disposition home or self-care (01) ==
PROVIDERS: Emergency Provider Family Medicine; PCP Family Medicine
DX: R07.89 Other chest pain (principal); K29.00 Acute gastritis without bleeding; Z87.891 Personal history of nicotine dependence
CPT/HCPCS: 71045; 80053; 81001; 81025; 83690; 84484; 85025; 93005; 96360; 99285; J7030

== ENCOUNTER → 2022-10-16 12:50 | Outpatient (BNVA) | payer MEDICAID, SELFPAY ==
[2021-05-26 14:13] VITALS: BP 116/73; BMI 31.4
== END ==
PROVIDERS: PCP Family Medicine; Visit Provider Psychiatry & Neurology Psychiatry
DX: F41.1 Generalized anxiety disorder (principal)
CPT/HCPCS: 80061; 83036

== ENCOUNTER → 2023-01-12 08:37 | Outpatient (BNVA) | payer MEDICAID, SELFPAY ==
[2022-10-26 15:24] VITALS: BP 112/72; BMI 33.9
== END ==
PROVIDERS: PCP Family Medicine; Visit Provider Internal Medicine Cardiovascular Disease
DX: R00.0 Tachycardia, unspecified (principal); R42 Dizziness and giddiness; F41.1 Generalized anxiety disorder; J45.998 Other asthma; Z87.891 Personal history of nicotine dependence
CPT/HCPCS: 99214

== ENCOUNTER → 2023-08-02 11:33 | Outpatient (BNVA) | payer MEDICAID, SELFPAY ==
[2022-10-26 15:24] VITALS: BP 112/72; BMI 33.9
== END ==
PROVIDERS: PCP Nurse Practitioner Family; Visit Provider Internal Medicine Cardiovascular Disease
DX: I47.11 Inappropriate sinus tachycardia, so stated (principal); Z87.891 Personal history of nicotine dependence
CPT/HCPCS: 99213

== ENCOUNTER → 2024-10-07 15:23 | Outpatient (BNVA) | payer MEDICAID, SELFPAY ==
[2022-10-26 15:24] VITALS: BP 112/72; BMI 33.9
== END ==
PROVIDERS: PCP Nurse Practitioner Family; Visit Provider Internal Medicine Cardiovascular Disease
DX: I47.11 Inappropriate sinus tachycardia, so stated (principal); I10 Essential (primary) hypertension; R00.2 Palpitations; Z87.891 Personal history of nicotine dependence
CPT/HCPCS: 99214

== ENCOUNTER → 2025-06-18 10:34 | Outpatient (BNVA) | payer MEDICARE, MEDICAID, SELFPAY ==
[2022-10-26 15:24] VITALS: BP 112/72; BMI 33.9
== END ==
PROVIDERS: PCP Nurse Practitioner Family; Visit Provider Nurse Practitioner Family
DX: R00.0 Tachycardia, unspecified (principal); I10 Essential (primary) hypertension; I45.10 Unspecified right bundle-branch block; I44.4 Left anterior fascicular block
CPT/HCPCS: 93005; 99214

== ENCOUNTER 2025-07-02 07:18 | Outpatient (CLI) | payer MEDICARE, MEDICAID, SELFPAY ==
[2022-10-26 15:24] VITALS: BP 112/72; BMI 33.9
[2025-07-02 07:32] VITALS: BMI 31.6
--- NOTE | 2025-07-02 07:33 | ECG_ITS ---
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 The perfusion scan will be documented separately. DATA: Baseline heart rate was 106 beats per minute. Baseline blood pressure was 121/92 millimeters of mercury. Target heart rate was 181. Maximum heart rate achieved was 128. which was 70 % of the predicted target heart rate. Maximum blood pressure was 121/92 millimeters of mercury. The reason for ending the test was completion of the protocol. The patient did not experience any symptoms. ELECTROCARDIOGRAM: BASELINE: Sinus rhythm. Normal axis. Right bundle branch block, otherwise, no ST-T changes suggestive of ischemia noted. No arrhythmia noted. EXERCISE: After Lexiscan injection, no ST-T changes suggestive of ischemic noted. No arrhythmia noted. CONCLUSION: Please note due to baseline abnormality of the EKG specificity and sensitivity of the EKG portion of LexiScan MIBI stress test will be low 1. EKG not suggestive of ischemia 2. Lexiscan injection unremarkable. 3. Perfusion scan will be documented separately. Electronically Signed On 07-16-2025 18:12:59 DIRECTOR OF KIDS by ALAN GARZA [email or web address]
--- NOTE | 2025-07-02 07:34 | NMCV_ITS ---
NM autumn perf SPECT r/s* [id number] Madleine Blevins Age: 40 Gender: F : 1985 Exam Date: 07/02/2025 08:10 Ordering Phys: Yris Mooney Technologist: JULIUS Bazzi Exam Location: [facility] Indications: cp STRESS TEST Please see separate stress test report in [facility] for full findings IMAGE PROTOCOL Rest/Stress 1 Lexiscan Day Radiopharmaceutical Dose (mCi) Administration Site Administered by Rest: Tc-99m 10.5 IV Mariza Howard, JEWEL [employer]LE DRILLER Sestamibi Stress:Tc-99m 32.8 IV Mariza Pinkgle, JEWEL HOLE DRILLER Sestamibi Rest: 02-Jul-2025 60 Discovery 630 Stress: 02-Jul-2025 30 Discovery 630 0.4mg Lexiscan. Images obtained in supine and prone position. SPECT RESULTS Technical Quality: Good Raw Data Analysis: Normal Image Corrections: No attenuation or motion correction applied Summed Stress Score: 7 Summed Rest Score: 2 Summed Difference Score: 5 PERFUSION FINDINGS Small area of fixed perfusion defect surrounded by medium sized area of severe reversibility noted in the distal anterior and apical wall of the left ventricle suggestive of small area of old myocardial infarction surrounded by medium sized area of jose roberto-infarct ischemia in distal LAD territory. FUNCTIONAL RESULTS (calculated via Gated SPECT) Stress Image LV EF (%): 78 Stress EDV (mL):45 TID: 0.92 Stress ESV (mL):10 FUNCTIONAL FINDINGS: There is normal left ventricular systolic function. IMPRESSIONS Small area of old myocardial infarction surrounded by medium sized area of severe jose roberto-infarct ischemia noted in distal anterior and apical wall of the left ventricle suggestive of possible lesion in distal LAD territory. Svetlana French MD (Electronically Signed) Final Date: 02 July 2025 12:40 S
[2025-07-02 09:01] VITALS: BP 106/68; PULSE 115
== END 2025-07-02 07:19 | disposition home or self-care (01) ==
LOC: CDL 07:20
PROVIDERS: PCP Student in an Organized Health Care Education/Training Program; Visit Provider Nurse Practitioner Family
DX: R07.9 Chest pain, unspecified (principal); R93.1 Abnormal findings on diagnostic imaging of heart and coronary circulation
CPT/HCPCS: 36415; 78452; 93017; 96374; A9500; J2785

== ENCOUNTER 2025-07-13 06:00 | Outpatient (CLI) | payer MEDICARE, MEDICAID, SELFPAY ==
[2022-10-26 15:24] VITALS: BP 112/72; BMI 33.9
[2025-07-13] VITALS (15 sets, daily range): BP systolic 96–154; BP diastolic 75–104; PULSE 93–120; RESP 14–28; TEMP 36.7; O2SAT 93–97; BMI 31.2
--- NOTE | 2025-07-13 06:00 | XACV_ITS ---
Exam Room: 2 Ht: 163 cm Wt: 83 kg BSA: 1.96 m2 Gender: Female : 1985 Any Known Allergies: Valium Exam Priority: Routine Procedure(s): Procedure Description: Diagnostic procedure Procedure Description: Left Heart Catheterization Procedure Description: Left ventriculography Procedure Description: Coronary Angiography Diagnostic Cath Status: Elective Diagnostic Findings * INDICATION: Chest pain/ abnormal stress test. * No significant disease noted in the Left Anterior Descending, Right, or Circumflex coronary arteries. Separate ostia of LAD and left circumflex arteries. * Coronary angiography shows right dominance. Conclusions 1. No significant disease noted in the Left Anterior Descending, Right, or Circumflex coronary arteries. Separate ostia of LAD and left circumflex arteries. 2. Normal left ventricular systolic function. Ejection fraction of 60%. Recommendations * Aggressive medical therapy for coronary artery disease. * Outpatient cardiology follow up in 2 weeks. Interventional RX Recommendation: medical therapy and/or counseling Diagnostic RX Recommendation: medical therapy and/or counseling Anticoagulation: Heparin Ventriculography Ejection Fraction: 60.0 % Pressures Phase:Rest AO : 132 / 95 ( 112 ) @ 7:54:00 AM 156 / 97 ( 124 ) @ 8:04:00 AM 156 / 97 ( 124 ) @ 8:04:00 AM LV : 157 / 0 / 7 @ 8:03:00 AM 162 / -2 / 16 @ 8:04:00 AM 160 / -4 / 15 @ 8:04:00 AM Valves Phase:DefaultPhase AV : 11.0 @ 8:09:24 AM AV Mean Gradient: 20.0 @ 8:09:24 AM Clinical Evaluation EBL: 5mL-10mL Procedural Details Procedure Consent Obtained. Pre-Procedure Time Out. Identified patient by full name and date of as verbalized by the patient/guarantor. Does the consent match the physician's order: Yes. Accurate & Complete Informed Consent: Yes. Inpatient/Outpatient History & Physical on Chart: Yes. If H&P is completed, is and addenduem needed: No. Relevant Radiology Images available: Yes. Visualize and Verify Site with Patient/Guarantor: N/A. The risks, benefits, and alternatives of sedation and/or procedure were discussed by physician. The patient agrees to continue. Procedure started. [facility] Clinical Fraility Score: 3: Managing Well. 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 Chest Pain Symptom Assessment: Typical Angina Symptoms. Cardiovascular Instability: No. Correct patient, site and procedure confirmed by cath team. PERRLA. Strong, equal hand maintenance parts technician bilaterally. Lungs clear x 5 lobes. IV Site on Arrival: 20 gauge in the right wrist. IV Fluids: 0.9% NaCl at KVO. 0 mL infused prior to pathology laboratory aide. Pre Procedural Pulses: bilateral dorsalis pedis was 1+. Pre Procedural Pulses: bilateral posterior tibial was 1+. Pre Procedural Pulses: bilateral radial was 2+. Oxygen started at 2liters/min via nasal canula. right groin was prepped with chloroprep then draped in the usual sterile fashion. right radial was prepped with chloroprep then draped in the usual sterile fashion. Physician notified. Baseline sample Acquired. HR: 84 BPM. Patient's family in CPRU room #3. Dr. Bruno will update at the completion of the procedure. Equipment: 6F - Radial. Cardiac Cath Pack. ACIST Manifold Kit Model BT 2000. Heparinized Saline (2 units/mL), 1000 mL bag. Physician arrived. Physician scrubbed in. Immediate Pre-Procedure Time Out. Correct Patient: Yes; Correct Procedure: Yes; Correct Site: Yes; Correct Patient Position: Yes; Correct Supplies: Yes; Dried Flammable Prep: Yes; Blood Products Available: N/A;. Lidocaine 1% infiltrated to the right radial. Arterial access obtained using ultrasound guidance. A 5 anguillan TIG catheter in over the exchange J wire. Multiple views taken of left coronary artery. Catheter redirected to the RCA. Unable to cannulate RCA. Catheter removed over the exchange J wire. A 5 anguillan JR4 catheter in over the exchange J wire. Multiple views taken of right coronary artery. Catheter removed over the exchange J wire. A 5 anguillan Angled Pig catheter in over the exchange J wire. EDP Sample taken: LV 157/-1,7; HR: 104 BPM; SpO2: 95%. LV gram performed in FU @ 10 mL/second for a total of 30 mL. EDP Sample taken: LV 162/-3,16; HR: 115 BPM; SpO2: 96%. Pullback taken: LV 160/-5,15; AO 156/97(124); Mean: 20mmHg, Peak to Peak: 11mmHg, SEP: 13sec/min; HR: 116 BPM; SpO2: 96%. Catheter removed over the exchange J wire. Dr. Bruno scrubbed out. A TR Band was successful obtaining hemostatsis at the Right Radial artery insertion site. Vital chart was stopped. Post Procedure: Pulses reassessed and unchanged. PERRLA. Strong, equal hand maintenance parts technician bilaterally. No VTE prophylaxis required. Medication's Wasted: Lidocaine 1% = 18 mL. Medication's Wasted: Nitro = 49.8 mg. Medication's Wasted: Heparin = 1000 units. Medication's Wasted: Other = Versed 2 mg. Medication's Wasted: Other = Fentanyl 50 mcg. Total IV fluids: 25 mL. Post-op diagnosis: non-obstructive CAD. Complications: none. Estimated blood loss: 5mL-10mL. Responsiveness - Normal response to verbal stimuli; alert and oriented, PERRLA. Airway - Unaffected, no intervention required; spontaneous ventilation. Circulation: W/N/L, pulses unchanged. Nausea/Vomiting: No. Procedure completed. Patient transferred by bed to Outpatient Surgery. Patient transferred by wheelchair to CPRU. Access Site Site: Right Radial artery Sheath Size: 6 Fr Hemostasis Method: TR Band Hemostasis Success: Successful Procedure Medications Start: 7:43 AM Stop: 7:43 AM Medication: Benadryl Amount: 50 mg Route: I.V. Start: 7:48 AM Stop: 7:48 AM Medication: Fentanyl Amount: 50 mcg Route: I.V. Start: 7:54 AM Stop: 7:54 AM Medication: Nitrogylcerin Amount: 200 mcg Route: I.A. Start: 7:55 AM Stop: 7:55 AM Medication: Heparin Amount: 5000 units Route: I.V. I, the attending physician, have reviewed and verified all procedure medications. Yes, all medications given per verbal order History/Risk Factors Hypertension: Yes Dyslipidemia: No Peripheral Arterial Disease (PAD): No Myocardial Infarction (ND): No Obesity: Yes Renal Disease: No Tobacco Use: Never Prior Interventions PCI: No CABG: No Valve Surgery: No Report Signatures Finalized by Chase Bruno MD on 07/27/2025 11:32 AM
[2025-07-13 06:38] LABS: Hematocrit 38.0 % (36-47); Hemoglobin 12.00 g/dL (11.27-16.99); Mean Corpuscular HGB Conc 31.6 g/dL (30-55); Mean Corpuscular Hemoglobin 26.1 pg (27-33); Mean Corpuscular Volume 82.8 fl (85-98); Nucleated Red Blood Cells % 0 %; Platelet Count 218 10^3/cmm (157-399); Red Blood Count 4.59 10^6/uL (3.85-5.65); White Blood Count 6.77 10^3/uL (3.29-11.43)
[2025-07-13 06:56] LABS: Anion Gap 14.9 (5-19); Blood Urea Nitrogen 8 mg/dL (6-20); Calcium 8.8 mg/dL (8.5-10.5); Carbon Dioxide 28 mmol/L (22-29); Chloride 100 mmol/L (98-107); Creatinine Clr Calc Pharmacy 98.1337; Glucose 115 mg/dL (65-115); Osmolality Calculated 287 mOsm/kg (285-295); Potassium 3.9 mmol/L (3.5-5.1); Sodium 139 mmol/L (136-145)
--- NOTE | 2025-07-13 07:44 | P.HPUD_ITS ---
Surgery/Procedure H&P Update DATE OF PROCEDURE: July 13, 2025 DATE H&P PERFORMED: 06/18/25 H&P UPDATE INFORMATION: I have reviewed H&P completed within last 30 days, I have examined patient prior to procedure and Changes to prior documentation as noted here CHANGES TO PREVIOUS DOCUMENTATION: Patient had stress test that was abnormal, referred for coronary angiogram with possible PCI PREOP DIAGNOSIS: Chest pain/ abnormal stress test PRIMARY INDICATION FOR PROCEDURE: Chest pain/ abnormal stress test PLANNED PROCEDURE: Operation Date: 07/13/25 07:00 Proposed Procedures p Cardiac Catheterization(Left) - Chase Bruno M.D Possible percutaneous coronary intervention PATIENT REASSESSED PRIOR TO SEDATION, WITH NO CHANGE NOTED: Yes PHYSICAL EXAM: alert, oriented x 3, clear to auscultation bilaterally and re gular rate & rhythm AIRWAY EVAL/ANESTHESIA PLAN: normal airway, ASA III, Local Anesthesia, Risks, benefits & alternatives of sedation and/or procedure discussed and Patient agr ees to continue as planned ADDITIONAL INFORMATION: Moderate sedation
--- NOTE | 2025-07-13 08:15 | SUR.PHASEII ---
POST CATH NOTE Received patient from cathode ray tube salvage processor. Status post cardiac catheterization via the right radial approach. TR band in place. The site is hemostatic. Verbal post cath instuctions went over with the patient/family. They understood well. No pain reported. MD stated to resume fluids at pre cath rate of 50 cc/hr. Done as ordered and is infusing without difficulty. No pain reported at this time.
--- NOTE | 2025-07-13 08:15 | PM.PROC ---
Procedure Note: Date of procedure: 07/13/25 Pre-procedure diagnosis: Chest pain/ abnormal stress test Post-procedure diagnosis: other (Patent coronary arteries) Procedure: Patent coronary arteries Medical therapy Performing Provider: Chase Bruno Estimated blood loss (mL): 10 Complications: None Condition: stable Disposition: same day Coding Level of Care Code Acute Code for Stevie Decker
== END 2025-07-13 11:24 | disposition home or self-care (01) ==
PROVIDERS: PCP Student in an Organized Health Care Education/Training Program; Visit Provider Internal Medicine
DX: R07.9 Chest pain, unspecified (principal); R94.39 Abnormal result of other cardiovascular function study; I10 Essential (primary) hypertension; E66.9 Obesity, unspecified; Z68.31 Body mass index [BMI] 31.0-31.9, adult; K21.9 Gastro-esophageal reflux disease without esophagitis; F33.9 Major depressive disorder, recurrent, unspecified; F41.9 Anxiety disorder, unspecified; J45.909 Unspecified asthma, uncomplicated; Z87.891 Personal history of nicotine dependence; G47.33 Obstructive sleep apnea (adult) (pediatric); I47.11 Inappropriate sinus tachycardia, so stated
CPT/HCPCS: 36415; 80048; 84702; 85025; 93458; 99152; 99153; C1769; C1887; C1894; J1200; J1644; J2250; J3010; J3490; J7030; J9999; Q0163; Q9967